=== PATIENT | female | born 1955 | race Caucasian/White ===

== ENCOUNTER 2016-03-22 16:16 | Inpatient (IN) | payer OTHER ==
[~2016-03-22] VITALS: Ht 157.5 cm; Wt 67.0 kg
[2016-03-22 17:27] LABS: HEMATOCRIT 38.7 % (36.0-46.0); MCH 30.3 PG (29.0-34.0); MCHC 35.4 G/DL (30.0-36.0); MCV 85.6 FL (83-99); MEAN PLAT.VOLUME 10.6 uM^3 (9.5-12.4); PLATELET COUNT 186 K/uL (156-360); RBC DIS.WIDTH-CV 12.5 % (11.8-14.6); RBC DIS.WIDTH-SD 37.5 % (39-53); RED BLOOD COUNT 4.52 M/uL (3.80-5.20); WHITE BLOOD COUNT 4.2 K/uL (4.1-10.2)
[2016-03-22 17:37] LABS: CHLORIDE 98 mEq/L (99-109); D-DIMER ELISA 0.35 mg/L FEU (< 0.57); POTASSIUM 4.1 mEq/L (3.7-5.4); SODIUM 133 mEq/L (136-147)
[2016-03-22 17:40] LABS: ANION GAP 12 MEQ/L (2-14)
[2016-03-22 17:41] LABS: TOTAL BILIRUBIN 0.4 mg/dL (0.0-1.0)
[2016-03-22 17:43] LABS: ALKALINE PHOSPHATASE 151 IU/L (3-129)
[2016-03-22 17:44] LABS: UREA NITROGEN (BUN) 18 mg/dL (9-23)
[2016-03-22 17:48] LABS: TROP-I INTERPRETATION NEGATIVE; TROPONIN-I < 0.01 ng/mL (0.0-0.30)
[2016-03-22 17:52] LABS: GFR ESTIMATE (CALCULATED) 45 mL/min/; GLUCOSE 687 mg/dL (70-99)
[2016-03-22] MEDS ORDERED: NITROSTAT0.4 MG SL (20:05)
[2016-03-22] MEDS ORDERED: NEXIUM40 MG PO (20:05)
[2016-03-22] MEDS ORDERED: ZANTAC150 MG PO (20:05)
[2016-03-22] MEDS ORDERED: LANTUS 10100 UNITS/ SC (20:05)
[2016-03-22] MEDS ORDERED: OXYCONTIN10 MG PO (20:06)
[2016-03-22] MEDS ORDERED: NOVOLOG 10100 UNITS/ SC (20:06)
[2016-03-22] MEDS ORDERED: LORCET PLUS 7.1 EACH PO (20:06)
[2016-03-22] MEDS ORDERED: DIFLUCAN150 MG PO (20:07)
[2016-03-22] MEDS ORDERED: BLOOD PRESSURE PO (20:08)
[2016-03-22] MEDS ORDERED: BLOOD PRESSURE MED PO (20:08)
[2016-03-22] MEDS ORDERED: SLEEP MED PO (20:09)
[2016-03-22 20:17] LABS: POINT-OF-CARE METER ID UU13113702
[2016-03-22 20:55] LABS: ADD MIUA? NO; BILIRUBIN NEGATIVE; BLOOD NEGATIVE; COLOR YELLOW ((YELLOW)); GLUCOSE (STRIP) >=1000; KETONES NEGATIVE; LEUKOCYTES NEGATIVE; NITRITE NEGATIVE; PH, URINE 6.5 (5-8); PROTEIN (STRIP) 30; SPECIFIC GRAVITY 1.036 (1.000-1.030); UCUL ADDED? NO; UROBILINOGEN 0.2 MG/DL (0.2-1.0)
[2016-03-22 21:17] VITALS: BP 127/77
[2016-03-22 23:43] LABS: TROP-I INTERPRETATION NEGATIVE; TROPONIN-I < 0.01 ng/mL (0.0-0.30)
[2016-03-23 00:08] VITALS: BP 101/56
[2016-03-23 02:34] LABS: POINT-OF-CARE METER ID UU13113700
[2016-03-23 04:12] VITALS: BP 120/72
[2016-03-23 05:02] LABS: TROP-I INTERPRETATION NEGATIVE; TROPONIN-I < 0.01 ng/mL (0.0-0.30)
[2016-03-23 07:56] VITALS: BP 104/69
[2016-03-23 10:58] VITALS: BP 121/72
[2016-03-23 14:26] LABS: POINT-OF-CARE METER ID UU13113831
[2016-03-23 16:00] VITALS: BP 111/63
[2016-03-23 19:56] VITALS: BP 141/82
[2016-03-23 21:53] LABS: POINT-OF-CARE METER ID UU14174216
[2016-03-24 01:43] VITALS: BP 148/76
[2016-03-24 02:13] LABS: POINT-OF-CARE METER ID UU13113781
[2016-03-24 05:10] VITALS: BP 144/75
[2016-03-24 06:35] LABS: EOSINOPHIL (%) 6.2 % (0-5); EOSINOPHIL COUNT 0.3 K/uL (0-0.3); HEMATOCRIT 38.2 % (36.0-46.0); IMMATURE GRANULOCYTE (%) 0.2 % (0.0-0.7); LYMPHOCYTE COUNT 1.8 K/uL (1.0-2.8); MCH 30.1 PG (29.0-34.0); MCHC 34.3 G/DL (30.0-36.0); MCV 87.8 FL (83-99); MEAN PLAT.VOLUME 10.3 uM^3 (9.5-12.4); MONOCYTE COUNT 0.3 K/uL (0-0.8); NEUTROPHIL (%) 48.7 % (45-76); NEUTROPHIL COUNT 2.3 K/uL (1.8-6.4); PLATELET COUNT 151 K/uL (156-360); RBC DIS.WIDTH-CV 12.7 % (11.8-14.6); RED BLOOD COUNT 4.35 M/uL (3.80-5.20); WHITE BLOOD COUNT 4.7 K/uL (4.1-10.2)
[2016-03-24 06:47] LABS: POINT-OF-CARE METER ID UU13113781
[2016-03-24 07:01] LABS: ANION GAP 5 MEQ/L (2-14); CHLORIDE 107 MEQ/L (99-109); GFR ESTIMATE (CALCULATED) > 59 mL/min/; POTASSIUM 4.2 MEQ/L (3.7-5.4); SAMPLE HEMOLYSIS CHECK 0; SAMPLE ICTERIC CHECK 0; SAMPLE LIPEMIA CHECK 0; SODIUM 139 MEQ/L (136-147); UREA NITROGEN (BUN) 16 mg/dL (9-23)
[2016-03-24 07:07] LABS: GLUCOSE 85 mg/dL (70-99)
[2016-03-24 07:34] VITALS: BP 120/70
[2016-03-24 11:20] VITALS: BP 156/88
[2016-03-24 11:22] LABS: POINT-OF-CARE METER ID UU13113781
[2016-03-24 14:28] LABS: POINT-OF-CARE METER ID UU13113781
[2016-03-24 15:59] VITALS: BP 147/69
[2016-03-24] MEDS ORDERED: LO-DOSE ASPIRIN81 M2 PO (16:31)
== END 2016-03-24 18:31 | disposition home or self-care (01) | DRG 313 ==
LOC: EME 16:16 → EDOF 18:57 → 5WEST 21:10 → 4EAST 03-23 13:01
PROVIDERS: Emergency Medicine; Internal Medicine; Physician Assistant
DX: R07.89 Other chest pain (principal); I25.119 Atherosclerotic heart disease of native coronary artery with unspecified angina pectoris; E11.65 Type 2 diabetes mellitus with hyperglycemia; K21.9 Gastro-esophageal reflux disease without esophagitis; I10 Essential (primary) hypertension; B18.2 Chronic viral hepatitis C; M19.90 Unspecified osteoarthritis, unspecified site; R94.31 Abnormal electrocardiogram [ECG] [EKG]; R63.4 Abnormal weight loss; Z79.4 Long term (current) use of insulin; Z68.27 Body mass index [BMI] 27.0-27.9, adult; Z86.73 Personal history of transient ischemic attack (TIA), and cerebral infarction without residual deficits; Z86.19 Personal history of other infectious and parasitic diseases; Z85.89 Personal history of malignant neoplasm of other organs and systems; Z90.5 Acquired absence of kidney; Z90.49 Acquired absence of other specified parts of digestive tract; Z96.659 Presence of unspecified artificial knee joint
CPT/HCPCS: 71020; 78452; 80048; 80053; 81003; 82009; 82948; 84484; 85025; 85027; 85379; 93005; 93017; 99281; 99285; A9500; G0378; J1650; J1815; J2785; J7030